=== PATIENT | male | born 1995 | race Caucasian/White ===

== ENCOUNTER 2020-04-05 00:07 | Emergency (ER) | payer BC ==
[~2020-04-05] VITALS: Ht 190.5 cm; Wt 72.6 kg
== END 2020-04-05 06:04 | disposition home or self-care (01) ==
LOC: ER 00:07
DX: S06.0X0A Concussion without loss of consciousness, initial encounter (principal); F17.200 Nicotine dependence, unspecified, uncomplicated; Y04.2XXA Assault by strike against or bumped into by another person, initial encounter
CPT/HCPCS: 36415; 93005; 93010; 99284-25